=== PATIENT | female | born 1960 | race Caucasian/White ===

== ENCOUNTER 2020-03-11 08:32 | Outpatient (CLI) | payer BC, SELFPAY ==
--- NOTE | ~2020-03-11 | MM_ITS ---
EXAMINATION: MM screening law[facility] BI w jorge HISTORY: Screening mammogram TECHNIQUE: Craniocaudal and mediolateral oblique 3-D tomosynthesis images were obtained and synthetic 2-D images were generated. CAD analysis was submitted and interpreted. COMPARISON: 03/10/2019, 12/09/2017, 07/08/2016 bilateral digital screening mammogram examinations BREAST PARENCHYMAL COMPOSITION: There are scattered areas of fibroglandular density. FINDINGS: There is no evidence of suspicious mass, calcification, or architectural distortion to sugg est malignancy in either breast. There has been no suspicious interval change. IMPRESSION: 1. No mammographic evidence of malignancy. 2. Recommend routine screening mammography in one year. BI-RADS Category 1: Negative Reviewed, dictated and finalized at location A. [employer]
== END 2020-03-11 08:33 | disposition home or self-care (01) ==
LOC: ANHIMG 08:37
PROVIDERS: PCP Nurse Practitioner Adult Health; Visit Provider Family Medicine
DX: Z12.31 Encounter for screening mammogram for malignant neoplasm of breast (principal)
CPT/HCPCS: 77063; 77067

== ENCOUNTER 2022-07-01 07:32 | Outpatient (CLI) | payer BC, SELFPAY ==
--- NOTE | ~2022-07-01 | MM_ITS ---
EXAMINATION: MM screening lawanda BI w jorge HISTORY: Screening mammogram TECHNIQUE: Craniocaudal and mediolateral oblique 3-D tomosynthesis images were obtained and synthetic 2-D images were generated. CAD analysis was submitted and interpreted. COMPARISON: 03/11/2020, 03/10/2019, 12/09/2017 bilateral screening mammogram examinations BREAST PARENCHYMAL COMPOSITION: There are scattered areas of fibroglandular density. FINDINGS: There is no evidence of suspicious mass, calcification, or architectural distortion to sugg est malignancy in either breast. There has been no suspicious interval change. IMPRESSION: 1. No mammographic evidence of malignancy. 2. Recommend routine screening mammography in one year. BI-RADS Category 1: Negative Reviewed, dictated and finalized at location A.
== END 2022-07-01 07:33 | disposition home or self-care (01) ==
LOC: ANHIMG 07:34
PROVIDERS: PCP Nurse Practitioner Family; Visit Provider Nurse Practitioner Family
DX: Z12.31 Encounter for screening mammogram for malignant neoplasm of breast (principal)
CPT/HCPCS: 77063; 77067

== ENCOUNTER 2024-04-30 12:51 | Outpatient (CLI) | payer BC, SELFPAY ==
--- OUTSIDE RECORDS SUMMARY | 2024-04-30 12:57 | XMS_ITS | Data Portability ---
Author Organization [facility], Main Office Address [address] [place] [address] Care Team Providers Care Skin Fitter Name Role Phone RIKKI JEFFERS Primary Care Provider RIKKI JEFFERS Referring Provider [phone] Assessment Encounter Date Assessment Date Assessment LastModified by Organization Details LastModified Time 04/01/2023 04/01/2023 Colon screen- 04/08/22 negative. Mammogram- 07/01/22 WWE- 05/09/22 atrophy, getting every 3 years. DEXA 06/2021 osteopenia. Blood work from ENDO January CMP, thyroid, gfr, cbc, a1c, lipid. Seeing derm, endo, vision, dental routinely. Not available 04/01/2023 13:18:09 04/15/2023 04/15/2023 63 yo F with - DM I - HLD - OSTEOPENIA - CHRONIC LOW BACK PAIN - VIT D DEFICIENCY D/w pt about her findings, recent labs and further plan of care. Pt is getting labs with her Endo regularly and so she declined for any labs here. Meds as directed by specialist. Cont f/u with Endo at [facility] as per schedule. Cont f/u with Pain clinic as per schedule. Cont f/u with Ophtho as per schedule. HM: WWE - 05/16, normal as per pt. Cont f/u with Gyne as per schedule. Mammo - 07/01/22, normal. Colonoscopy - 2009. Cologuard 04/15 - neg as per pt. DEXA - 06/28/21, osteopenia ++. Pt has an order for pt. Tdap - 04/15. Flu - 12/14. Shingrix - At pharmacy/HD. F/u PRN/Annually. Annual labs in 04/17. [email or web address] Not available 04/15/2023 15:52:45 04/05/2024 04/05/2024 64 yo F with - WELL ADULT VISIT - SEASONAL ALLERGIES - DM I - HLD - OSTEOPENIA - CHRONIC LOW BACK PAIN - VIT D DEFICIENCY D/w pt about her findings, recent labs & imagines and further plan of care. Pt is getting labs with her Endo regularly and so she declined for any labs here. Meds as directed by specialist. Cont f/u with Endo at [facility] as per schedule. Cont f/u with Pain clinic as per schedule. Cont f/u with Ophtho as per schedule. HM: WWE - 05/16, normal as per pt. Cont f/u with Gyne as per schedule. Mammo - 07/01/22, normal. Ordered. Colonoscopy - 2009. Cologuard 04/15 - neg as per pt. DEXA - 06/28/21, osteopenia ++. Ordered. Tdap - 04/15. Flu - 12/15. Pneumonia - 2019. Shingrix - Pt got 2 doses. F/u PRN/Annually. Annual labs in 04/18. Not available 04/05/2024 14:55:08 Plan of Treatment Reminders Order Date Submit Date Provider Last Modified By Organization Details Last Modified Time Details Appointments None recorded. Lab None recorded. Referral None recorded. Procedures None recorded. Surgeries None recorded. Imaging MAMMO, screening, digital, bilateral [address] [place] [address] [facility], [address], [place], [address], 16:47:44 DEXA - osteopenia in 2021. *Please call pt to schedule* [address] [place] [address] (Imaging), [address], [place], [address], 4 08:59:18 MAMMO, screening, bilateral - Please call pt to schedule [facility] [address], [place], [address], 16:05:23 DEXA - Please call pt to schedule 2024 025 MELL [facility], [address], [place], [address], 16:05:23 Medication Orders fluticason e propionate 50 mcg/actuat ion nasal spray,susp ension 2024 025 ARELI [id number], [address] [facility], [place], [place], [id number], 14:37:22 Patient TargetsNo targets recorded. Patient Instructions Encounter Date Encounter Id Patient Instructions Last Modified By Organization Details Last Modified Time 04/01/2023 [id number] see above [email or web address] Not available 04/01 13:18:16 fu in 1-3 mo wit h new provider to establish. 04/01/23 pt aware of [facility]ant departure. Will schedule with [facility]. Not available 04/01/2023 13:18:47 Reason for Referral None Reported. Results Created Date Observation Date Name Description Value Unit Range Abnormal Flag Note LastModifiedBy Organization Detail LastModifiedTime 05/09/1905/17/2022 PAP THINP REP LB, RFX HPV diagnosis: commen t . NEGAT KRISHAN FOR INTRA EPITH ELIAL ENE N OR PATY DIAZ . CELLU LAR KAUFMAN ES ASSOC IATED WITH ATROP HY ARE PRESE NT. Not Available [facility] (Lab) [address] [place], [address], 05/17/2022 11:12:46 05/09/1905/17/2022 PAP THINP REP LB, RFX HPV specimen adequacy: commen t . Satis facto ry for evalu ation . Endoc ervic al and/o r squam ous m etapl astic cells (endo cervi alok compo nent) are prese nt. Not Available [facility] (Lab) [address] [place], [address], 05/17/2022 11:12:46 05/09/19 23 05/17/2022 PAP THINP REP LB, RFX HPV performed by: adwoa Jordan ws, Cytot echshonda morales t (ASCP ) Not Available [facility] (Lab) [address] [place], [address], 05/17/2022 11:12:46 05/09/19 23 05/17/2022 PAP THINP REP LB, RFX HPV . . Not Available [facility] (Lab) [address] [place], [address], 05/17/2022 11:12:46 05/09/19 23 05/17/2022 PAP THINP REP LB, RFX HPV note: adwoa epps The Pap smear is a scree eleonora test desig mina to aid in the detec tion of elizabeth ligna nt and malig nant condi tions of the uteri ne cervi x. It is not a diagn ostic proce dure and shoul d not be used as the sole means of detec ting cervi alok cance r. Both false -posi tive and false -nega tive repor ts do occur . . Not Available [facility] (Lab) [address] [place], [address], 05/17/2022 11:12:46 05/09/19 23 05/17/2022 PAP THINP REP LB, RFX HPV test methodology: adwoa epps This liqui d based ThinP rep(R ) pap test was scree mina with the use of an image guide estela taylor. Not Available [facility] (Lab) [address] [place], [address], 05/17/2022 11:12:46 05/09/19 23 05/17/2022 PAP THINP REP LB, RFX HPV . adwoa epps The HPV DNA refle x crite neelima were not met with this speci men resul t there fore, no HPV testi ng was perfo rmed. . Perfo rmed at: [facility] [place] [address] , [place] [address] Lab Direc tor: Yusuf flanagan MD, Phone : [phone] Not Available [facility] (Lab) [address] [place], [address], 05/17/2022 11:12:46 04/27/19 25 04/28/2024 COMPR EHENS KRISHAN METAB OLIC PANEL glucose 156 mg/dL 65-99 high Fasti ng refer ence inter dougie For someo ne witho ut known diabe pedro, a gluco se value >125 mg/dL indic ates that they may have diabe pedro and this shoul d be confi rmed with a follo w-up test. Not Available [address], [address], 04/28/2024 08:53:22 04/27/19 25 04/28/2024 COMPR EHENS KRISHAN METAB OLIC PANEL urea nitrogen (BUN) 25 mg/dL 7-25 normal Not Available [address], [address], 04/28/2024 08:53:22 04/27/19 25 04/28/2024 COMPR EHENS KRISHAN METAB OLIC PANEL creatinine 0.78 mg/dL 0.50-1 .05 normal Not Available [facility] [address], [address], 04/28/2024 08:53:22 04/27/19 25 04/28/2024 COMPR EHENS KRISHAN METAB OLIC PANEL eGFR 85 mL/mi n/1.7 3m2 > or = 60 normal Not Available [facility] [address], [address], 04/28/2024 08:53:22 04/27/19 25 04/28/2024 COMPR EHENS KRISHAN METAB OLIC PANEL BUN/creatini ne ratio SEE NOTE: (calc ) 6-22 Not Repor sarahy: BUN and Creat inine are withi n refer ence range . Not Available [address], [address], 04/28/2024 08:53:22 04/27/19 25 04/28/2024 COMPR EHENS KRISHAN METAB OLIC PANEL sodium 139 mmol/ L 135-14 6 normal Not Available [address], [address], 04/28/2024 08:53:22 04/27/19 25 04/28/2024 COMPR EHENS KRISHAN METAB OLIC PANEL potassium 4.5 mmol/ L 3.5-5. 3 normal Not Available [address], [address], 04/28/2024 08:53:22 04/27/19 25 04/28/2024 COMPR EHENS KRISHAN METAB OLIC PANEL chloride 101 mmol/ L 98-110 normal Not Available [address], [address], 04/28/2024 08:53:22 04/27/19 25 04/28/2024 COMPR EHENS KRISHAN METAB OLIC PANEL carbon dioxide 25 mmol/ L 20-32 normal Not Available [address], [address], 04/28/2024 08:53:22 04/27/19 25 04/28/2024 COMPR EHENS KRISHAN METAB OLIC PANEL calcium 9.9 mg/dL 8.6-10 .4 normal Not Available [address], [address], 04/28/2024 08:53:22 04/27/19 25 04/28/2024 COMPR EHENS KRISHAN METAB OLIC PANEL protein, total 6.3 g/dL 6.1-8. 1 normal Not Available [address], [address], 04/28/2024 08:53:22 04/27/19 25 04/28/2024 COMPR EHENS KRISHAN METAB OLIC PANEL albumin 4.5 g/dL 3.6-5. 1 normal Not Available [address], [address], 04/28/2024 08:53:22 04/27/19 25 04/28/2024 COMPR EHENS KRISHAN METAB OLIC PANEL globulin 1.8 g/dL_ (calc ) 1.9-3. 7 low Not Available [address], [address], 04/28/2024 08:53:22 04/27/19 25 04/28/2024 COMPR EHENS KRISHAN METAB OLIC PANEL albumin/glob ulin ratio 2.5 (calc ) 1.0-2. 5 normal Not Available [address], [address], 04/28/2024 08:53:22 04/27/19 25 04/28/2024 COMPR EHENS KRISHAN METAB OLIC PANEL bilirubin, total 0.7 mg/dL 0.2-1. 2 normal Not Available [address], [address], 04/28/2024 08:53:22 04/27/19 25 04/28/2024 COMPR EHENS KRISHAN METAB OLIC PANEL alkaline phosphatase 77 U/L 37-153 [address] Not [address] [facility] [address], [address], 04/28/2024 08:53:22 04/27/19 25 04/28/2024 COMPR EHENS KRISHAN METAB OLIC PANEL AST 35 U/L 10-35 normal Not Available [address], [address], 04/28/2024 08:53:22 04/27/19 25 04/28/2024 COMPR EHENS KRISHAN METAB OLIC PANEL ALT 60 U/L 6-29 high Not Available [address], [address], 04/28/2024 08:53:22 04/27/19 25 04/28/2024 CBC (INCL UDES DIFF/ PLT) white blood cell count 4.9 thous and/u L 3.8-10 .8 normal Not Available [address], [address], 04/28/2024 08:53:24 04/27/19 25 04/28/2024 CBC (INCL UDES DIFF/ PLT) red blood cell count 4.51 geno on/uL 3.80-5 .10 normal Not Available [address], [address], 04/28/2024 08:53:24 04/27/19 25 04/28/2024 CBC (INCL UDES DIFF/ PLT) hemoglobin 13.7 g/dL 11.7-1 5.5 normal Not Available [address], [address], 04/28/2024 08:53:24 04/27/19 25 04/28/2024 CBC (INCL UDES DIFF/ PLT) hematocrit 40.8 % 35.0-4 5.0 normal Not Available [address], [address], 04/28/2024 08:53:24 04/27/19 25 04/28/2024 CBC (INCL UDES DIFF/ PLT) MCV 90.5 fL 80.0-1 00.0 normal Not Available [address], [address], 04/28/2024 08:53:24 04/27/19 25 04/28/2024 CBC (INCL UDES DIFF/ PLT) MCH 30.4 pg 27.0-3 3.0 normal Not Available [facility] [address], [address], 04/28/2024 08:53:24 04/27/19 25 04/28/2024 CBC (INCL UDES DIFF/ PLT) MCHC 33.6 g/dL 32.0-3 6.0 normal For adult s, a sligh t decre ase in the calcu lated MCHC value (in the range of 30 to 32 g/dL) is most likel y not clini clarice signi fican t; arenev er, it shoul d be inter prete d with cauti on in corre latio n with other red cell mayra eters and the patie nt's clini alok condi tion. Not Available [address], [address], 04/28/2024 08:53:24 04/27/19 25 04/28/2024 CBC (INCL UDES DIFF/ PLT) RDW 12.0 % 11.0-1 5.0 normal Not Available [address], [address], 04/28/2024 08:53:24 04/27/19 25 04/28/2024 CBC (INCL UDES DIFF/ PLT) platelet count 215 thous and/u L 140-40 0 normal Not Available [address], [address], 04/28/2024 08:53:24 04/27/19 25 04/28/2024 CBC (INCL UDES DIFF/ PLT) MPV 12.9 fL 7.5-12 .5 high Not Available [address], [address], 04/28/2024 08:53:24 04/27/19 25 04/28/2024 CBC (INCL UDES DIFF/ PLT) absolute neutrophils 2710 cells /uL 1500-7 800 normal Not Available [facility] [address], [address], 04/28/2024 08:53:24 04/27/19 25 04/28/2024 CBC (INCL UDES DIFF/ PLT) absolute lymphocytes 1725 cells /uL 850-39 00 normal Not Available [facility] [address], [address], 04/28/2024 08:53:24 04/27/19 25 04/28/2024 CBC (INCL UDES DIFF/ PLT) absolute monocytes 319 cells /uL 200-95 0 normal Not Available [facility] [address], [address], 04/28/2024 08:53:24 04/27/19 25 04/28/2024 CBC (INCL UDES DIFF/ PLT) absolute eosinophils 108 cells /uL 15-500 normal Not Available [facility] [address], [address], 04/28/2024 08:53:24 04/27/19 25 04/28/2024 CBC (INCL UDES DIFF/ PLT) absolute basophils 39 cells /uL 0-200 normal Not Available [facility] [address], [address], 04/28/2024 08:53:24 04/27/19 25 04/28/2024 CBC (INCL UDES DIFF/ PLT) neutrophils 55.3 % normal Not Available [facility] [address], [address], 04/28/2024 08:53:24 04/27/19 25 04/28/2024 CBC (INCL UDES DIFF/ PLT) lymphocytes 35.2 % normal Not Available [facility] [address], [address], 04/28/2024 08:53:24 04/27/19 25 04/28/2024 CBC (INCL UDES DIFF/ PLT) monocytes 6.5 % normal Not Available [facility] [address], [place], [address], 04/28/2024 08:53:24 04/27/19 25 04/28/2024 CBC (INCL UDES DIFF/ PLT) eosinophils 2.2 % normal Not Available [address], [address], 04/28/2024 08:53:24 04/27/19 25 04/28/2024 CBC (INCL UDES DIFF/ PLT) basophils 0.8 % normal Not Available [address], [address], 04/28/2024 08:53:24 04/27/19 25 04/28/2024 URINA LYSIS , COMPL ETE W/REF LANE TO CULTU RE color YELLOW yellow normal Not Available [address], [address], 04/28/2024 08:53:25 04/27/19 25 04/28/2024 URINA LYSIS , COMPL ETE W/REF LANE TO CULTU RE appearance CLEAR clear normal Not Available [address], [address], 04/28/2024 08:53:25 04/27/19 25 04/28/2024 URINA LYSIS , COMPL ETE W/REF LANE TO CULTU RE specific gravity 1.007 1.001- 1.035 normal Not Available [address], [address], 04/28/2024 08:53:25 04/27/19 25 04/28/2024 URINA LYSIS , COMPL ETE W/REF LANE TO CULTU RE pH 6.5 5.0-8. 0 normal Not Available [address], [address], 04/28/2024 08:53:25 04/27/19 25 04/28/2024 URINA LYSIS , COMPL ETE W/REF LANE TO CULTU RE glucose NEGATI VE negati ve normal Not Available [address], [address], 04/28/2024 08:53:25 04/27/19 25 04/28/2024 URINA LYSIS , COMPL ETE W/REF LANE TO CULTU RE bilirubin NEGATI VE negati ve normal Not Available [facility] [address], [address], 04/28/2024 08:53:25 04/27/19 25 04/28/2024 URINA LYSIS , COMPL ETE W/REF LANE TO CULTU RE ketones NEGATI VE negati ve normal Not Available [facility] [address], [address], 04/28/2024 08:53:25 04/27/19 25 04/28/2024 URINA LYSIS , COMPL ETE W/REF LANE TO CULTU RE occult blood NEGATI VE negati ve normal Not Available [facility] [address], [address], 04/28/2024 08:53:25 04/27/19 25 04/28/2024 URINA LYSIS , COMPL ETE W/REF LANE TO CULTU RE protein NEGATI VE negati ve normal Not Available [facility] [address], [address], 04/28/2024 08:53:25 04/27/19 25 04/28/2024 URINA LYSIS , COMPL ETE W/REF LANE TO CULTU RE nitrite NEGATI VE negati ve normal Not Available [facility] [address], [address], 04/28/2024 08:53:25 04/27/19 25 04/28/2024 URINA LYSIS , COMPL ETE W/REF LANE TO CULTU RE leukocyte esterase NEGATI VE negati ve normal Not Available [facility] [address], [address], 04/28/2024 08:53:25 04/27/19 25 04/28/2024 URINA LYSIS , COMPL ETE W/REF LANE TO CULTU RE WBC NONE SEEN /hpf < or = 5 normal Not Available [address], [place], [address], 04/28/2024 08:53:25 04/27/19 25 04/28/2024 URINA LYSIS , COMPL ETE W/REF LANE TO CULTU RE RBC NONE SEEN /hpf < or = 2 normal Not Available [address], [place], [address], 04/28/2024 08:53:25 04/27/19 25 04/28/2024 URINA LYSIS , COMPL ETE W/REF LANE TO CULTU RE squamous epithelial cells NONE SEEN /hpf < or = 5 normal Not Available [address], [place], [address], 04/28/2024 08:53:25 04/27/19 25 04/28/2024 URINA LYSIS , COMPL ETE W/REF LANE TO CULTU RE bacteria NONE SEEN /hpf none seen normal Not Available [address], [place], [address], 04/28/2024 08:53:25 04/27/19 25 04/28/2024 URINA LYSIS , COMPL ETE W/REF LANE TO CULTU RE hyaline cast NONE SEEN /lpf none seen normal Not Available [address], [address], 04/28/2024 08:53:25 04/27/19 25 04/28/2024 URINA LYSIS , COMPL ETE W/REF LANE TO CULTU RE note This urine was keena zed for the prese nce of WBC, RBC, bacte neelima, casts , and other forme d eleme nts. Only those eleme nts seen were repor sarahy. Not Available [address] [place], [address], 04/28/2024 08:53:25 04/27/1904/28/2024 REFLE XIVE URINE CULTU RE reflexive urine culture NO CULTU RE INDIC ATED Not Available [facility] [place] [address] , [place], [address], 04/28/2024 08:53:27 04/27/19 25 04/28/2024 VITAM IN D,25- OH,TO ALBAN,I A vitamin D,25-oh,tota l,ia 92 NG/mL 30-100 normal Vitam in D Statu s 25-OH Vitam in D: Defic iency : <20 ng/mL Insuf ficie ncy: 20 - 29 ng/mL Optim al: > or = 30 ng/mL For 25-OH Vitam in D testi ng on patie nts on D2-rubio pplem entat ion and patie nts for whom quant itati on of D2 and D3 fract ions is requi red, the [facility] eD(TM ) 25-OH VIT D, (D2,D 3), LC/MS /MS is recom juliano d: order code 53274 (abraham ents >2yrs ). See Note 1 Note 1 For addit ional infor rena ventura e refer to http: //jonathan Gonzales stDia gnost ics.c om/fa q/FAQ 199 (This link is being provi ded for infor kristen cannon/ caleb chong purpo ses only. ) Not Available [facility] [place] [address], [place], [address], 04/28/2024 08:53:27 07/02/1907/01/2022 MAMMO , swati crews, bilat eral No observ ation record ed. [email or web address] [place] [address], [place], [address], 07/03/2022 08:57:32 04/15/19 25 04/14/2024 DEXA No observ ation record ed. BARCODE Not Available 2024 15:22:00 Result Notes None recorded. Problems Name Problem SNOMED Code Status Onset Date Resolution Date Notes Provider Name and Address Organization Details Recorded Time Disorder of shoulder 640492578 Completed Not Available [facility] 3 08:48:33 Menopausal syndrome 757672403 Active Not Available [facility] 3 08:48:33 Injury of elbow 843823490 Completed Not Available [facility] 3 08:48:33 Anti-nucle ar factor detected 025491054 Active Not Available [facility] 3 08:48:33 Lateral epicondyli tis 380453113 Completed Not Available [facility] 3 08:48:33 Pain 43152189 Completed Not Available [facility] 3 08:48:33 Shoulder joint pain 115248749 Active Not Available [facility] 3 08:48:33 Elevated level of transamina se and lactic acid dehydrogen ase 046143365 Active Not Available [facility] 3 08:48:33 Difficulty gripping 145863703 Completed Not Available [facility] 3 08:48:34 Chest pain 71516750 Completed Not Available [facility] 3 08:48:34 Numbness of finger 337294423 Completed Not Available [facility] 3 08:48:34 Osteopenia 325741264 Active 2019 Not Available [facility] 3 08:48:34 Vaginal dryness 60851980 Active Not Available [facility] 3 08:48:34 Tachycardi a 8247346 Completed Not Available [facility] 3 08:48:34 Vitamin D deficiency 01097046 Active Not Available [facility] 3 08:48:34 Tendinitis 37628303 Completed Not Available [facility] 3 08:48:34 Ulnar neuropathy 269814423 Completed Not Available [facility] 3 08:48:34 Sinusitis 03853701 Completed Not Available [facility] 3 08:48:34 Disorder due to type 2 diabetes mellitus 642742919 Completed Not Available [facility] 3 08:48:35 Seasonal allergy 675016572 Active Not Available [facility] 3 08:48:35 Shoulder pain 99705222 Completed 201602/03/2019 Not Available [facility] 3 08:48:35 Type 1 diabetes mellitus 12825153 Active 2018 Not Available [facility] 3 08:48:35 Retinopath y due to diabetes mellitus 9831370 Completed 201802/03/2019 Not Available [facility] 3 08:48:35 Hyperlipid emia 67762497 Active Not Available [facility] 3 08:48:35 Intolerant of heat 78949889 Completed Not Available [facility] 3 08:48:35 Rhinitis 52257809 Completed Not Available [facility] 3 08:48:36 Hemorrhoid s 34520630 Active Not Available [facility] 3 08:48:36 Diabetes mellitus 80061602 Completed Not Available [facility] 3 08:48:36 Diabetes mellitus 99895860 Completed 201802/03/2019 Not Available [facility] 3 08:48:36 Postmenopa usal state 55407000 Active 2022 Not Available [facility] 3 08:48:36 Epigastric pain 28669580 Completed Not Available [facility] 3 08:48:36 Hyperglyce nabila 73161115 Completed Not Available [facility] 3 08:48:36 Fatigue 41220844 Completed Not Available [facility] 3 08:48:37 Seasonal allergic rhinitis 334316419 Active 2024 Nilson Green MD [address], [address], [place], [address] , [facility] 5 14:36:37 Problem Notes None recorded. Procedures Surgical History Date Name Laterality Status Provider Name and Address Organization Details Recorded Time 07/02/19 Date of Last Mammogram completed Jane Cast NP [address], [address], [place], [address], [place] [facility] 07/02/2022 15:48:09 07/02/19 23 Most Recent Mammogram completed Jane Beavers RN [facility] 04/01/2023 12:15:55 04/08/19 23 Date of Last Colonoscopy completed Not Available [facility] 05/22/2022 08:44:04 06/29/19 22 Most Recent Bone Density completed Jane Beavers RN [facility] 04/01/2023 12:16:23 03/24/19 19 release of trigger finger completed Not Available [facility] 05/22/2022 08:44:05 Tonsillectomy completed Not Available [facility] 05/22/2022 08:44:05 Imaging Results Imaging Date Name Status LastModified by Organiz ation Details LastModified Time 07/01/2022 MAMMO, [facility] [place] [address] [place] [address], [address], 07/03/2022 08:57:32 04/14/2024 DEXA completed BARCODE Information no t available 04/15/2024 15:22:00 Procedure Notes None recorded. Medical Equipment None Reported. Allergies Allergen ID Allergen Name Allergen Category Reaction Reaction Severity Criticality Documentation Date Start Date Code Code System Note Provider Name and Address Organization Details Recorded Time Product containin g 3-hydroxy -3-methyl glutaryl- coenzyme A reductase inhibitor (product) medicatio n other Not available Not available 05/22/2022 [address] 009 SNOMED [facility] sarahy liver enzym es Not Available [facility] 08:53:49 Medications Name Sig Start Date Stop Date Status Note LastModified by Organization Details LastModified Time cyclobenz aprine 10 mg tablet TK 1 T PO D HS FOR 30 DAYS. active Not Available Not Available No t Available atorvasta tin 40 mg tablet 02/19 completed Not Available Not Available Not Available atorvasta tin 80 mg tablet Take 1 po daily active Not Available Not Available No t Available prednison e 10 mg tablet Take by oral route. active Not Available Not Available No t Available cefuroxim e axetil 250 mg tablet active Not Available Not Available Not Available Anusol-HC 2.5 % rectal cream with applicato r Insert by rectal route one applicat or after bowel movement s and at bedtime. 07/02 completed prn Not Available Not Available Not Available atorvasta tin 10 mg tablet TAKE 1 TABLET BY MOUTH DAILY 02/19 completed Not Available Not Available Not Available Stool Softener 100 mg capsule Take 1 capsule every day by oral route. 07/29 completed Not Available Not Available Not Available glyburide 5 mg tablet TK 1 T PO QD 02/03 completed Not Available Not Available Not Available Glucagon Emergency Kit 1 mg solution for injection 07/13 completed Not Available Not Available Not Available valacyclo vir 1 gram tablet TAKE 1 TABLET BY MOUTH THREE TIMES DAILY FOR 7 DAYS 04/05 completed Not Available Not Available Not Available hydrocodo ne 5 mg-acetam inophen 325 mg tablet 02/03 completed Not Available Not Available Not Available prednison e 20 mg tablet TAKE 2 TABLETS BY MOUTH DAILY FOR 5 DAYS 04/05 completed Not Available Not Available Not Available Zyrtec 10 mg tablet 1 tablet every day by oral route. active Not Available Not Available No t Available sulfameth oxazole 800 mg-trimet hoprim 160 mg tablet TAKE 1 TABLET BY MOUTH EVERY 12 HOURS 03/28 completed Not Available Not Available Not Available omeprazol e 40 mg capsule,d elayed release Take 1 capsule daily active Not Available Not Available No t Available aspirin 81 mg tablet,de layed release Take 1 tablet every day by oral route. 04/05 completed Not Available Not Available Not Available triamcino lone acetonide 0.1 % topical cream APPLY A THIN LAYER TO THE AFFECTED AREA(S) BY TOPICAL ROUTE 2 TIMES PER DAY 03/28 completed Not Available Not Available Not Available Kenalog 40 mg/mL suspensio n for injection Take 1 mL every day by injectio n route for 1 day. 02/19 completed Not Available Not Available Not Available Mobic 15 mg tablet Take 1 tablet every day by oral route in the morning for 30 days. 06/27 completed Not Available Not Available Not Available Vitamin C 1,000 mg tablet Take 1 tablet every day by oral route. 04/06 completed Not Available Not Available Not Available cyanocoba mary (vit B-12) 500 mcg tablet Take 1 tablet every day by oral route. 04/05 completed Not Available Not Available Not Available Proctozon e-HC 2.5 % topical cream perineal applicato r APPLY RECTALLY AFTER BOWEL MOVEMENT S AND HS 02/14 completed Not Available Not Available Not Available cephalexi n 500 mg capsule TAKE 1 CAPSULE BY MOUTH THREE TIMES DAILY FOR 10 DAYS 04/05 completed Not Available Not Available Not Available diclofena c sodium 75 mg tablet,de layed release TK 1 T PO BID WITH FOOD 11/05 completed ELEVATED LIVER ENZYMES Not Available Not Available Not Available etodolac 400 mg tablet TK 1 T PO BID active Not Available Not Available No t Available monteluka st 10 mg tablet Take 1 tablet every day by oral route for 30 days. active Not Available Not Available No t Available lidocaine HCl 20 mg/mL (2 %) injection solution 04/05 completed Not Available Not Available Not Available Novolog U-100 Insulin aspart 100 unit/mL subcutane ous solution FOR INSULIN PUMP active Not Available Not Available No t Available levofloxa betito 500 mg tablet Take 1 tablet every day by oral route as directed . 2013 active Not Available Not Available Not Avai lable Anusol-HC 25 mg rectal supposito ry Insert 1 supposit ory twice a day by rectal route for 14 days. 04/06 completed Not Available Not Available Not Available methylpre dnisolone 4 mg tablets in a dose pack FOLLOW PACKAGE DIRECTIO NS 02/19 completed Not Available Not Available Not Available fluticaso ne propionat e 50 mcg/actua tion nasal spray,chris pension Inhale 2 sprays every day by intranas al route in the evening. active Not Available Not Available No t Available metformin ER 500 mg tablet,ex tended release 24 hr TK 1 T PO BID 07/29 completed Not Available Not Available Not Available Microlet Lancet USE TO TEST SIX TIMES D 07/13 completed Not Available Not Available Not Available amoxicill in 500 mg-potass ium clavulana te 125 mg tablet TK 1 T PO BID active Not Available Not Available No t Available ezetimibe 10 mg tablet 1 tab po daily active Not Available Not Available No t Available Vitamin D3 25 mcg (1,000 unit) capsule Take 1 capsule every day by oral route as directed . 04/14 completed Not Available Not Available Not Available rosuvasta tin 10 mg tablet Take 1 tablet every day by oral route for 90 days. 02/03 completed Not Available Not Available Not Available metformin ER 1,000 mg tablet,ex tended release 24 hr 1 tab po bid 07/29 completed Not Available Not Available Not Available vitamin P42-emrqd acid 1 po qd 2013 active Not Available Not Available Not Avai lable metformin ER 500 mg 24 hr tablet,ex tended release (gastric retention ) Take 1 tablet every day by oral route. 07/02 completed Labs due 06/2016 Not Available Not Available Not Available Januvia 100 mg tablet Take 1 tablet every day by oral route for 30 days. active Not Available Not Available No t Available Lantus Solostar U-100 Insulin 100 unit/mL (3 mL) subcutane ous pen ADMINIST ER 10 UNITS UNDER THE SKIN DAILY 04/01 completed Not Available Not Available Not Available Astepro 205.5 mcg (0.15 %) nasal spray [place] 2 sprays every day by intranas al route as directed . 2013 active Not Available Not Available Not Avai lable Vitamin D3 125 mcg (5,000 unit) tablet 1 tablet every day by oral route. active Not Available Not Available No t Available Novolog PenFill U-100 Insulin Uses with pump 03/28 completed Not Available Not Available Not Available Pilar Allergy 180 mg tablet Take 1 tablet every day by oral route. 08/30 completed Not Available Not Available Not Available Pilar Allergy 1 po qd 2013 active Not Available Not Available Not Avai lable Accu-Chek FastClix Lancing Device USE TO TEST ONCE TO BID 01/01 completed Not Available Not Available Not Available Accu-Chek Antonina U UTD 01/01 completed Not Available Not Available Not Available Contour Next Test Strips USE TO TEST UP TO SIX TIMES D active Not Available Not Available No t Available Victoza 2-Jack 0.6 mg/0.1 mL (18 mg/3 mL) subcutane ous pen injector Inject 0.6mg subcutan eous daily, increase dose by 0.6mg weekly until reaching 1.8mg daily. 02/03 completed Not Available Not Available Not Available Invokana 100 mg tablet TAKE 1 TABLET BY MOUTH EVERY DAY active Not Available Not Available No t Available Trulicity 1.5 mg/0.5 mL subcutane ous pen injector 02/03 completed Not Available Not Available Not Available Trulicity 0.75 mg/0.5 mL subcutane ous pen injector INJECT 0.5ML EVERY WEEK BY SUBCUTAN EOUS ROUTE. 02/03 completed Not Available Not Available Not Available Tresiba FlexTouch U-100 insulin 100 unit/mL (3 mL) subcutane ous pen INJ 10 UNITS UNDER SKIN NIGHTLY 02/14 completed Not Available Not Available Not Available Flucelvax Quad 6929-1149 (PF) 60 mcg (15 mcg x 4)/0.5 mL IM syringe ADM 0.5ML IM UTD 07/29 completed Not Available Not Available Not Available BD Ultra-Fin e Micro Pen Needle 32 gauge x 1/4 U TO INJ INSULIN UTD UP TO 7 XD 07/13 completed Not Available Not Available Not Available Fiasp FlexTouch U-100 Insulin 100 unit/mL (3 mL) subcutane ous pen INJ 5 UNI SC TID 02/14 completed Not Available Not Available Not Available Dexcom G6 Transmitt er device USE DIRECTED 04/01 completed Not Available Not Available Not Available Baqsimi 3 mg/actuat ion nasal spray ADMINIST ER 1 SPRAY INTO ONE NOSTRIL NEEDED active Not Available Not Available No t Available Semglee (insulin glargine- yfgn) Pen 100 unit/mL (3 mL) subcutane ous ADMINIST ER 10 UNITS UNDER THE SKIN DAILY active Not Available Not Available No t Available Dexcom G7 Sensor device CHANGE SENSOR EVERY 10 DAYS DIRECTED active Not Available Not Available No t Available Vitals Date Recorded Body mass index (BMI) Body mass index (BMI) Body height Body height Oxygen saturation Oxygen saturation in Arterial blood by Pulse oximetry Oxygen saturation Oxygen saturation in Arterial blood by Pulse oximetry Heart rate Heart rate Respiratory rate Body temperature Body temperature Body weight Body weight Systolic blood pressure Diastolic blood pressure Systolic blood pressure Diastolic blood pressure Provider Name and Address Organization Details Last Updated DateTime 3 22.9 kg/m2 22.8 kg/m2 160.02 cm 160.02 cm 98 % 98 % 97 % 97 % 70 /min 66 /min 16 /min 97.4 [degF] 98.7 [degF] 80095.4 2 g 30449.0 6 g 122 mm[Hg] 78 mm[Hg] 108 mm[Hg] 78 mm[Hg] Not Available [facility] 3 08:44:41 Date Recorded Body height Body mass index (BMI) Body weight Body temperature Heart rate Respiratory rate Oxygen saturation Oxygen saturation in Arterial blood by Pulse oximetry Pain severity - 0-10 verbal numeric rating [Score] - Reported Systolic blood pressure Diastolic blood pressure Provider Name and Address Organization Details Last Updated DateTime 4 160.02 cm 23.6 kg/m2 99436.1 4 g 96.6 [degF] 64 /min 20 /min 97 % 97 % 0 114 mm[Hg] 72 mm[Hg] Jane Beavers RN [facility] [employer] 4 12:14:48 Date Recorded Body height Body temperature Heart rate Respiratory rate Oxygen saturation Oxygen saturation in Arterial blood by Pulse oximetry Systolic blood pressure Diastolic blood pressure Provider Name and Address Organization Details Last Updated DateTime 4 160.02 cm 98.3 [degF] 66 /min 16 /min 99 % 99 % 118 mm[Hg] 76 mm[Hg] Niels [facility] [employer] [facility] 4 15:25:31 Date Recorded Body mass index (BMI) Body weight Provider Name and Address Organization Details Last Updated DateTime 04/15/2023 23.2 kg/m2 02788.3 g Nilson Green MD [address] [place] [address], [id number], [place] [employer] [facility] [employer] 04/15/2023 15:28:08 Date Recorded Body height Body mass index (BMI) Body weight Body temperature Oxygen saturation Oxygen saturation in Arterial blood by Pulse oximetry Heart rate Systolic blood pressure Diastolic blood pressure Provider Name and Address Organization Details Last Updated DateTime 5 160.02 cm 22.3 kg/m2 75901.9 9 g 97.9 [degF] 99 % 99 % 63 /min 120 mm[Hg] 78 mm[Hg] Anna Lundberg RN [facility] [employer] 14:21:00 Social History Question Answer Notes LastModified by Organization Details LastModified Time Tobacco Smoking Status Never Smoker Vero en[facility] [employer] [facility] [employer] 04/15/2023 15:11:28 Do You Have An Advance Directive? Yes [id number] Information not available 05/22/2022 What Is Your Level Of Alcohol Consumption? None [id number] Information not available 05/22/2022 Is Blood Transfusion Acceptable In An Emergency? Yes [email or web address] Information not available 04/15/2023 What Is Your Level Of Caffeine Consumption? Heavy Coffee And Sodas [id number] Information not available 05/22/2022 What Is Your Code Status? Full Code Information not available 04/15/2023 In The 14 Days Before Symptom Onset, Have You Had Close Contact With A Laboratory-confi rmed COVID-19 While That Case Was Ill? No [email or web address] Information not available 04/15/2023 In The 14 Days Before Symptom Onset, Have You Had Close Contact With A Person Who Is Under Investigation For COVID-19 While That Person Was Ill? No [email or web address] Information not available 04/15/2023 What Type Of Diet Are You Following? REGULAR [id number] Information not available 05/22/2022 What Is The Highest Grade Or Level Of School You Have Completed Or The Highest Degree You Have Received? [id number] [email or web address] Information not available 04/15/2023 What Is Your Occupation? Retired [email or web address] Information not available 04/15/2023 Have There Been Any Changes To Your Family Or Social Situation? No Information not available 04/15/2023 Do You Use Insect Repellent Routinely? Yes [email or web address] Information not available 04/15/2023 Where Do You Live? SingleLevelHouse With Basement [email or web address] Information not available 04/15/2023 Do You Have A Medical Power Of Legal Transcriber? Yes [email or web address] Information not available 04/15/2023 What Was The Date Of Your Most Recent Tobacco Screening? 07/11/2021 [email or web address] Information not available 04/15/2023 Do You Have Any Pets? No [email or web address] Information not available 04/15/2023 What Is Your Relationship Status? [id number] Information not available 05/22/2022 Do You Use Your Seat Belt Or Car Seat Routinely? Yes [email or web address] Information not available 04/15/2023 Do You Have Smoke And Carbon Monoxide Detectors In Your Home? Yes [email or web address] Information not available 04/15/2023 Are You Passively Exposed To Smoke? No [email or web address] Information not available 04/15/2023 Are There Any Smokers In Your House? No [email or web address] Information not available 04/15/2023 Do You Participate In [employer]? Yes Information not available 04/15/2023 Do You Feel Stressed (tense, Restless, Nervous, Or Anxious, Or Unable To Sleep At Night)? [id number] [email or web address] Information not available 04/15/2023 Do You Use Any Illicit Or Recreational Drugs? No Information not available 04/15/2023 Do You Use Sunscreen Routinely? Yes [email or web address] Information not available 04/15/2023 Have You Recently Traveled Abroad? No [email or web address] Information not available 04/15/2023 Sex: Unknown Functional Status Question Answer Note LastModified by Organization D etails LastModified Time What is your exercise level? Moderate [email or web address] Information not available 04/01/2023 Mental Status None recorded. Family History Relationship Description Onset Age of this Age Resolved Age Notes LastModified by Organization Details LastModified Time Mother Atrial fibrillation [email or web address] Not available 14:09:08 Mother Cerebrovascu lar accident [email or web address] Not available 14:09:08 Mother Hypertensive disorder [id number] Not available 05/22/2022 08:44:06 Father Malignant neoplasm of urinary bladder [email or web address] Not available 04/05 14:09:08 Sister Psoriatic arthritis [email or web address] Not available 04/05 14:09:08 Medical History Condition Response DIABETES, TYPE Y HIGH CHOLESTEROL / HYPERLIPIDEMIA Y Gynecological History Statement/Question Response Abnormal Pap N If Post Menopausal, Age at Menopause 53 Date of Last Colonoscopy 04/08/2022 Date of Last Mammogram 07/01/2022 Most Recent Bone Density 06/28/2021 Date of Last Pap 05/09/2022 Most Recent Mammogram 07/01/2022 Obstetrics History GPAL:G 0 P 0 0 0 0 Immunizations Vaccine Type Date Status Note Provider Nam e and Address Organization Details Recorded Time Tdap 3 completed Nilson Green MD [address], [place], [address], [facility] [employer] [facility] 04/05/2024 14:24:59 Influenza, split virus, trivalent, preservative 4 completed Nilson Green MD [address], [place], [address], [facility] [employer] [facility] 04/05/2024 14:24:59 Influenza, split virus, trivalent, preservative 7 completed Not Available [facility] 05/22/2022 08:53:41 COVID-19, mRNA, LNP-S, PF, 100 mcg/0.5mL dose or 50 mcg/0.25mL dose 1 completed Not Available [facility] 05/22/2022 08:53:41 Influenza, split virus, quadrivalent, preservative 1 completed Not Available [facility] 05/22/2022 08:53:41 COVID-19, mRNA, LNP-S, PF, 100 mcg/0.5mL dose or 50 mcg/0.25mL dose 1 completed Not Available [facility] 05/22/2022 08:53:41 COVID-19, mRNA, LNP-S, PF, 100 mcg/0.5mL dose or 50 mcg/0.25mL dose 1 completed Not Available [facility] 05/22/2022 08:53:41 pneumococcal polysaccharide PPV23 0 completed Not Available [facility] 05/22/2022 08:53:42 Influenza, split virus, quadrivalent, preservative 0 completed Not Available [facility] 05/22/2022 08:53:42 Influenza, split virus, quadrivalent, preservative 9 completed Not Available [facility] 05/22/2022 08:53:42 Influenza, split virus, quadrivalent, preservative 9 completed Not Available [facility] 05/22/2022 08:53:42 influenza, unspecified formulation 6 completed Not Available [facility] 05/22/2022 08:53:42 Influenza, split virus, trivalent, preservative 5 completed Not Available [facility] 05/22/2022 08:53:42 Influenza, split virus, trivalent, preservative 4 completed Not Available [facility] 05/22/2022 08:53:42 Influenza, split virus, trivalent, preservative 3 completed Not Available [facility] 05/22/2022 08:53:42 Tdap 2 completed Not Available [facility] 05/22/2022 08:53:42 Past Encounters Encounter ID Performer Location Encounter Start Date Encounter Closed Date Diagnosis/Indication Diagnosis SNOMED-CT Code Diagnosis ICD10 Code Diagnosis Note [id number] S[facility] [facility] [address] , [place] [address] 09/21/2020 00:00:00 09/21/2020 11:01:26 [id number] S_G [facility] [facility] [address] [place] [address] [place] [address] 02/19/2021 00:00:00 02/19/2021 11:50:51 [id number] S[facility] [facility] [place] [address] 06/21/2021 00:00:00 06/21/2021 09:40:00 [id number] S_[facility] [address] [place] [address] 07/11/2021 00:00:00 07/11/2021 14:38:05 [id number] S[facility] [facility] [place] [address] 12/10/2021 00:00:00 12/10/2021 18:53:07 [id number] S_GMG [place] [address] [place] [address] 03/28/2022 00:00:00 03/28/2022 15:46:[id number] [address] 05/09/2022 00:00:00 05/09/2022 11:39:32 [id number] Jane Cast NP [address] [address] 04/01/2023 11:50:50 04/01/2023 13:41:45 Adult health examination 226344742 Z00.00 Encouraged well balanced meals, active lifestyle, and routine vision and dental appts. Hyperlipidemia 69254148 E78.5 Atorvastat in 80 mg po nightly. Zetia 10 mg po daily. Type 1 iman betes mellitus 57320450 E10.9 Seeing endo. Dexcom, semglee insulin pump Vitamin D deficiency 347 43358 E55.9 vit d 51,000-5,0 00 IU po daily. Osteopenia 595243413 M85 .80 dexa 06/2021 osteopenia . Repeat june 2023. Screening mammography 24 791314 Z12.31 07/01/2022 ok, order given 04/01/23 to schedule after 07/02/23. [id number] Nilson Green MD [address] [address] 04/15/2023 15:10:30 04/15/2023 15:58:49 Hyperlipidemia 67264335 E78.5 Type 1 iman betes mellitus 60092100 E10.9 Seasonal allergy 3653272 04 J30.2 Osteopenia 306136960 M85 .80 Vitamin D deficiency 347 56109 E55.9 [id number] Nilson Green MD [address] [address] 04/05/2024 14:07:24 04/05/2024 14:54:19 Hyperlipidemia 40950980 E78.5 Type 1 iman betes mellitus 67538456 E10.9 Seasonal allergy 7279454 04 J30.2 Osteopenia 061531727 M85 .80 Vitamin D deficiency 347 28513 E55.9 Adult heal th examination 970880282 Z00.00 Screening mammography 24 814345 Z12.31 Postmenopausal state 764 04500 Z78.0 Seasonal a llergic rhinitis 917195251 J30.2 Health Concerns Section Related Observation LastModified by Organization Detai ls LastModified Time None Recorded Concern Status LastModified by Organization Details LastModified Time None Recorded Advance Directives Directive Y: Payers Encounter Date Sequence Insurance Name Policy Number Policy Stokes Covered Member ID Stokes Member ID Guarantor Name 04/01/2023 1 [place] [id number] Jasmin K Krysten [id number] Jasmin K Krysten 04/15/2023 1 [place] [id number] Jasmin K Krysten [id number] Jasmin K Krysten 04/05/2024 1 [place] [id number] Jasmin K Krysten [id number] Jasmin K Krysten Notes Date Note Type Note Provider Name and Address Organization Details Recorded Time 04/01/2023 text/html Here for wellness adult visit Type I dm- Seeing endocrine. Red Luna. Dexcom. 01/31/23 7.6. endo did not make changes.Vit d def- vit d 5000 IU daily.Lipid- Labs done January 2023, no changes per endocrine. Colon screen- 04/08/22 negative.Mammogr am- 07/01/22 okWWE- 05/09/22 atrophy, getting every 3 years.DEXA 06/2021 osteopenia. Jane Cast NP [address], [place], [address], [place] [facility] 04/01/2023 13:19:09 04/15/2023 text/html Pt is here to establish her care with me. Doing overall well. Denies any new concern. Pt had DM-I and is f/u with Endo at [facility] for it. Pt is getting labs with them and so she doesn't want to do any labs here at all. Pt has chronic low back pain and has seen Pain clinic for it and got steroid injection with them. Nilson Green MD [address], [place], [address], [employer] 04/15/2023 15:53:17 04/05/2024 text/html Pt is here for her annual exam. Doing overall well. Denies any new concern. Pt had DM-I and is f/u with Endo at [facility] for it. Pt is getting labs with them and so she doesn't want to do any labs here at all. Pt has chronic low back pain and has seen Pain clinic for it and got steroid injection with them. Nilson Green MD [address], [place], [address], [employer] 04/05/2024 14:55:19 OBGyn Episode No OBEpisode recorded.
--- OUTSIDE RECORDS SUMMARY | 2024-04-30 12:57 | XMS_ITS | Data Portability ---
Author Organization [facility] [place] [facility] Address [address] [place] [address] Assessment No assessment recorded. Plan of Treatment Reminders Order Date Submit Date Provider Last Modified By Organization Details Last Modified Time Details Appointments ANY 15 2024 11:00A M Heriberto Degroot MD Not available Not available Not available Lab None recorded. Referral audiologi st referral [address], [address], 04/21/2024 11:01:53 Procedures None recorded. Surgeries None recorded. Imaging None recorded. Medication Orders None recorded. Patient TargetsNo targets recorded. Patient InstructionsNo instructions recorded. 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 Medications Name Sig Start Date Stop Date Status Note LastModified by Organization Details LastModified Time atorvastatin 80 mg tablet Take 1 tablet every day by oral route. active Not Available Not Available No t Available valacyclovir 1 gram tablet TAKE 1 TABLET BY MOUTH THREE TIMES DAILY FOR 7 DAYS active Not Available Not Available N ot Available prednisone 20 mg tablet TAKE 2 TABLETS BY MOUTH DAILY FOR 5 DAYS active Not Available Not Available N ot Available cephalexin 500 mg capsule TAKE 1 CAPSULE BY MOUTH THREE TIMES DAILY FOR 10 DAYS active Not Available Not Available Not Available fluticasone propionate 50 mcg/actuatio n nasal spray,suspen chantell SHAKE LIQUID AND USE 2 SPRAYS IN EACH NOSTRIL EVERY DAY IN THE EVENING active Not Available Not Available No t Available ezetimibe 10 mg tablet Take 1 tablet every day by oral route. active Not Available Not Available No t Available Lantus Solostar U-100 Insulin 100 unit/mL (3 mL) subcutaneous pen ADMINISTER 10 UNITS UNDER THE SKIN DAILY active Not Available Not Available N ot Available Vitals Date Recorded Body height Body mass index (BMI) Body weight Heart rate Respiratory rate Body temperature Systolic blood pressure Diastolic blood pressure Provider Name and Address Organization Details Last Updated DateTime 160.02 cm 22.3 kg/m2 08403.2 8 g 67 /min 16 /min 97.3 [degF] 118 mm[Hg] 76 mm[Hg] Teagan Benedict MA [facility] 16:13:22 Social History Question Answer Notes LastModified by Organizat ion Details LastModified Time Tobacco Smoking Status Never Smoker Teagan Benedict MA null, [facility] 04/20/2024 16:10:44 What Is Your Level Of Alcohol Consumption? None Information not available 04/20/2024 Are You Blind Or Do You Have Difficulty Seeing? Yes Contacts Information not available 04/20/2024 What Is Your Level Of Caffeine Consumption? Heavy Coffee Information not available 04/20/2024 In The 14 Days Before Symptom Onset, Have You Had Close Contact With A Laboratory-confi rmed COVID-19 While That Case Was Ill? No Information not available 04/20/2024 Have You Been To An Area Known To Be High Risk For COVID-19? No Information not available 04/20/2024 Are You Currently Employed? No Information not available 04/20/2024 Are You Deaf Or Do You Have Serious Difficulty Hearing? Yes Some Both Ears Information not available 04/20/2024 What Type Of Diet Are You Following? REGULAR Information not available 04/20/2024 What Was The Date Of Your Most Recent Tobacco Screening? 04/20/2024 Information not available 04/20/2024 What Is Your Relationship Status? Information not available 04/20/2024 Do You Feel Stressed (tense, Restless, Nervous, Or Anxious, Or Unable To Sleep At Night)? [id number] Information not available 04/20/2024 Do You Use Any Illicit Or Recreational Drugs? No Information not available 04/20/2024 Has Tobacco Cessation Counseling Been Provided? No Information not available 04/20/2024 Do You Or Have You Ever Used Any Other Forms Of Tobacco Or Nicotine? No Information not available 04/20/2024 Sex: Unknown Functional Status Question Answer Note LastModified by Organization D etails LastModified Time What is your exercise level? None Information not available 04/20/2024 Mental Status None recorded. Family History Nothing Reported. Medical History No medical history recorded. Gynecological HistoryNo gynecological history recorded. Obstetrics History GPAL:G 0 P 0 0 0 0 Past Encounters Encounter ID Performer Location Encounter Start Date Encounter Closed Date Diagnosis/Indication Diagnosis SNOMED-CT Code Diagnosis ICD10 Code Diagnosis [facility] [id number] [facility] [address] [place] [address] 04/20/2024 15:39:06 04/21/2024 11:10:25 Chronic rhinitis 59930948 J31.0 on flonase and Pilar Asymmetric al sensorineural hearing loss 613279270 H90.5 follow up after audio Health Concerns Section Related Observation LastModified by Organization Detai ls LastModified Time None Recorded Concern Status LastModified by Organization Details LastModified Time None Recorded Advance Directives Directive None Recorded Payers Encounter Date Sequence Insurance Name Policy Number Policy Stokes Covered Member ID Stokes Member ID Guarantor Name 04/20/2024 1 [place] [id number] Jasmin Asht [id number] Jasmin Bashir Notes Date Note Type Note Provider Name and Address Organization Details Recorded Time 04/20/2024 text/html Pt complaining o f hearing loss in her right ear. She had an episode of true whirling vertigo three months ago. She also complains of nasal congestion and drainage on flonase and antihistamines Heriberto Degroot MD Attn: Accounting[address] [facility], [place], [address], [facility] 04/20/2024 16:24:04 OBGyn Episode No OBEpisode recorded.
--- OUTSIDE RECORDS SUMMARY | 2024-04-30 12:57 | XMS_ITS | Clinical Summary ---
Author Organization [facility] Address [address] [place] [id number] Care Team Providers Care Steam Turbine Operator Name Role Phone Nilson Green MD Primary Care Provider [phone] Encounters Date Type Department Care Team Description 04/14/2024 10:25 AM TRANSPORTATION LEAD - 04/14/2024 11:59 PM TRANSPORTATION LEAD Hospital Encounter [facility] Mammography [place] [address] Nilson Green MD Discharge Disposition: Home or Self Care (Routine Discharge) 04/14/2024 Travel 04/09/2024 2:06 PM TRANSPORTATION LEAD - 04/09/2024 11:59 PM TRANSPORTATION LEAD Hospital Encounter [facility] Mammography [address] [place] [id number] Nilson Green MD Discharge Disposition: Home or Self Care (Routine Discharge) 04/09/2024 Travel from Last 3 Months Social History Tobacco Use Types Packs/Day Years Used Date Smoking Tobacco: Never Assessed Comments Unknown Sex and Gender Information Value Date Recorded Sex Assigned at Female 04/07/2024 10:42 AM TRANSPORTATION LEAD Legal Sex Female 3:01 PM TRANSPORTATION LEAD Gender Identity Not on file Sexual Orientation Not on file Plan of Treatment Health Maintenance Due Date Last Done Comments Cervical Cancer Screening Pap Smear (Age 30 to 64) Every 3 Years 1961 Colorectal Cancer Screening Colonoscopy (10 Years) 1961 Annual Physical 1964 Hepatitis C 1979 Cervical Cancer Screening Pap with HPV Testing (Age 30 to 64) Every 5 Years 1991 Cervical Cancer Screening with HPV 1991 COVID-19 Vaccine ( season) 2023 01/06/2023, 12/26/2021, 02/12/2021, Additional history exists Mammogram Screening 04/09/2026 04/09/2024 DTaP, Tdap and Td Vaccines (3 - Td or Tdap) 03/28/2032 03/28/2022, 01/22/2012 Pneumococcal Vaccine: Pediatrics (0 to 5 Years) and At-Risk Patients (6 to 64 Years) Aged Out 02/22/2020 No longer eligible based on patient's age to complete this topic Zoster Vaccines Completed 04/30/2021, 02/19/2021 RSV Immunization or 60+ Years Completed 01/09/2023 Influenza Adult Completed 12/22/2023, 07/2022, 12/20/2021, Additional history exists Meningococcal B Vaccine Aged Out No l onger eligible based on patient's age to complete this topic Meningococcal Vaccine Aged Out No jennifer johnnie eligible based on patient's age to complete this topic RSV Immunizations Under 20 Months Aged Out No longer eligible based on patient's age to complete this topic Procedures Procedure Name Priority Date/Time Associated Diagnosis Comments BONE DENSITY/DEXA Routine 04/14/2024 10: 51 AM TRANSPORTATION LEAD Asymptomatic menopausal state MG SCREENING W PEPPER JANE DIGI Routine 04/09/2024 2:28 PM TRANSPORTATION LEAD Screening mammogram for breast cancer from Last 3 Months Results * BONE DENSITY/DEXA (04/14/2024 10:51 AM TRANSPORTATION LEAD) Anatomical Region Laterality Modality Bone Mammography 04/14/2024 11:0 9 AM TRANSPORTATION LEAD Impressions 04/14/2024 11:10 AM TRANSPORTATION LEAD IMPRESSION: WHO Classification: osteopenia. FRAX 10-year fracture risk: Major Osteoporotic Fracture: 9.9% Hip Fracture: 1.4% Referred By: NILSON GREEN Interpreted By: Jonathan Diallo MD, 04/14/2024 11:09 AM Narrative 04/14/2024 11:[address] [facility] [address] [place] [address] Examination: Bone Density Axial Exam Date/Time: 04/14/2024 10:36 AM Reason For Exam: Post-menopausal screening. Comparison: None Findings: DEXA bone densitometry The bone mineral density (BMD) was determined by dual-energy x-ray absorptiometry, the results are as follows: AP Lumbar Spine L1 through L4 BMD Patient (GM/SQCM): 0.898 T-Score (Standard deviations from young adult peak bone density): -1.4 Left femoral neck: BMD Patient (GM/SQCM): 0.661 T-Score (Standard deviations from young adult peak bone density): -1.7 Total left femur: BMD Patient (GM/SQCM): 0.851 T-Score (Standard deviations from young adult peak bone density): -0.7 Right femoral neck: BMD Patient (GM/SQCM): 0.624 T-Score (Standard deviations from young adult peak bone density): -2.0 Total right femur: BMD Patient (GM/SQCM): 0.826 T-Score (Standard deviations from young adult peak bone density): -1.0 Recommendations: All patients should ensure an adequate intake of dietary calcium and vitamin D. The NOF recommend adults under the age of 50 need 1000 mg of calcium and 400-800 IU of vitamin D daily. Effective therapy for the prevention and treatment of osteoporosis include biphosphonates. Follow-up: People with diagnosed cases of osteoporosis or at high risk for fracture should have regular bone mineral density test. For patients eligible for Medicare, routine testing is allowed once every 2 years. Testing frequency can be increased to one year for patients who have rapidly progressing disease, those who are receiving or discontinuing medical therapy to restore bone mass, or have additional risk factors. Procedure Note Jonathan Diallo MD - 04/14/2024 [facility] [address] [place] [address] Examination: Bone Density Axial Exam Date/Time: 04/14/2024 10:36 AM Reason For Exam: Post-menopausal screening. Comparison: None Findings: DEXA bone densitometry The bone mineral density (BMD) was determined bydual-energy x-ray absorptiometry, the results are as follows: AP Lumbar Spine L1 through L4 BMD Patient (GM/SQCM): 0.898 T-Score (Standard deviations from young adult peak bonedensity): -1.4 Left femoral neck: BMD Patient (GM/SQCM): 0.661 T-Score (Standard deviations from young adult peak bonedensity): -1.7 Total left femur: BMD Patient (GM/SQCM): 0.851 T-Score (Standard deviations from young adult peak bonedensity): -0.7 Right femoral neck: BMD Patient (GM/SQCM): 0.624 T-Score (Standard deviations from young adult peak bonedensity): -2.0 Total right femur: BMD Patient (GM/SQCM): 0.826 T-Score (Standard deviations from young adult peak bonedensity): -1.0 Recommendations: All patients should ensure an adequate intake of dietary calcium andvitamin D. The NOF recommend adults under the age of 50 need 1000 mg ofcalcium and 400-800 IU of vitamin D daily. Effective therapy for theprevention and treatment of osteoporosis include biphosphonates. Follow-up: People with diagnosed cases of osteoporosis or at high risk for fractureshould have regular bone mineral density test. For patients eligible forMedicare, routine testing is allowed once every 2 years. Testing frequencycan be increased to one year for patients who have rapidly progressingdisease, those who are receiving or discontinuing medical therapy torestore bone mass, or have additional risk factors. IMPRESSION: WHO Classification: osteopenia. FRAX 10-year fracture risk: Major Osteoporotic Fracture: 9.9% Hip Fracture: 1.4% Referred By: NILSON GREEN Interpreted By: Jonathan Diallo MD, 04/14/2024 11:09 AM Nilson Green MD DEXA Final Result * MG SCREENING W PEPPER JANE DIGI (04/09/2024 2:28 PM TRANSPORTATION LEAD) Anatomical Region Laterality Modality Breast Bilateral Mammography 04/09/2024 5:38 PM TRANSPORTATION LEAD Impressions 04/09/2024 5:40 PM TRANSPORTATION LEAD IMPRESSION: No significant interval change. No mammographic evidence of malignancy. RECOMMENDATION: Routine ScreeningBilateral OVERALL IMAGING ASSESSMENT: ACR BI-RADS 2 - BENIGN FINDING(S). Ordered By: NILSON GREEN Interpreted By: Luisito Castro, 04/09/2024 5:38 PM Narrative 04/09/2024 5:40 PM TRANSPORTATION LEAD [facility] [place] [id number] EXAMINATION: MG SCREENING W PEPPER JANE DIGI INDICATIONS: Screening TECHNIQUE: Digital full field CC and MLO screening mammography bilaterally to include 3-D Tomosynthesis technique. This study was read with the assistance of a computer-aided detection system. HISTORY: No reported breast complaint. No documented personal or first degree family history of breast cancer. No documented prior breast procedure. COMPARISON: 07/01/2022, 2020, 03/10/2019, 12/09/2018, and 07/08/2016. TISSUE DENSITY: There are scattered areas of fibroglandular density. FINDINGS: Few typically benign round calcifications. No suspicious microcalcification or mass. Stable fibroglandular asymmetries. No developing asymmetry or architectural distortion. No axillary adenopathy. Nilson Green MD MAMMO Final Result from Last 3 Months Insurance [facility] Care Teams Steam Turbine Operator Relationship Specialty Start Date End Date Nilson Green MD [address] [place] [phone] PCP - General HOSPITALIST 04/14/24
--- OUTSIDE RECORDS SUMMARY | 2024-04-30 12:58 | XMS_ITS | Clinical Summary ---
Author Organization [facility] [address] [facility] Address [address] [place] [address] Care Team Providers Care Hydroelectric Mechanic Name Role Phone Red Luna MD Unavailable [phone] Nilson Green MD Primary Care Provider [phone] Allergies No known active allergies Medications cholecalciferol , vitamin D3, (VITAMIN D3 ORAL) Take 1 capsule by mouth every other day Active lancets misc Microlet Lancet USE TO TEST SIX TIMES D Active cetirizine (ZyrTEC) 10 mg tablet 02/20/20 20 Active blood glucose diagnostic (Contour Next Test Strips) strip Use to check blood sugar up to 3 times/day Use when Dexcom unavailable 300 strip 3 02/07/20 23 Active atorvastatin (LIPITOR) 80 mg tabletIndicatio ns: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) Take 1 tablet (80 mg total) by mouth daily 90 tablet 3 08/01/19 24 Active ezetimibe (ZETIA) 10 mg tabletIndicatio ns:Type 1 diabetes mellitus without complication (HCC) Take 1 tablet (10 mg total) by mouth daily 90 tablet 3 08/01/19 24 Active insulin glargine 100 unit/mL (3 mL) pen for injectionIndica tions:Type 1 diabetes mellitus without complication (HCC) Inject 10 Units under the skin daily 3 mL 1 08/01/19 24 Active NovoLOG 100 unit/mL vial for injection Active glucagon (Baqsimi) 3 mg/actuation spray,non-aeros olIndications:T ype 1 diabetes mellitus without complication (HCC) Administer 1 spray (3 mg total) into one nostril as needed (for use in case of emergency for hypoglycemia) 1 each 2 02/06/20 24 Active Dexcom G7 Sensor device CHANGE SENSOR EVERY 10 DAYS 9 each 3 04/22/19 25 Active Dexcom G7 Sensor device Change sensor every 10 days 9 each 01/29/20 24 025 Discontinued Active Problems Problem Noted Date Diagnosed Date 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 02/[address] 02/06/2022 Vitamin D deficiency 04/21/2019 Vaginal dryness 04/21/2019 Shoulder joint pain 04/21/2019 Seasonal allergies 04/21/2019 Positive antinuclear antibody 04/21/2019 Menopausal syndrome 04/21/2019 Hyperlipidemia 04/21/2019 Hemorrhoids 04/21/2019 Elevation of level of transa minase and lactic acid dehydrogenase (LDH) 04/21/2019 Osteopenia 03/30/2019 Age-related nuclear cataract of both eyes 2018 Assessment & Plan (03/14/2020 9:56 AM FISH CLEANER MACHINE TENDER): Very mild, not VS Observe for now Assessment & Plan (02/02/2019 9:38 AM FISH CLEANER MACHINE TENDER): Very mild, not visually significant Observe Vitreous syneresis of both eyes 02/02/2019 Assessment & Plan (03/14/2020 9:56 AM FISH CLEANER MACHINE TENDER): No RT/RD on exam Observe Assessment & Plan (02/02/2019 9:38 AM FISH CLEANER MACHINE TENDER): No RT/RD on exam Observe Diabetic nephropathy associa sarahy with type 1 diabetes mellitus (CMS/HCC) 01/26/2019 Unintentional weight loss 12/14/2018 Abnormal blood creatinine level 12/14/2018 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 Follows with endocrinology, Dr. Alas. Assessment & Plan (02/02/2019 9:57 AM FISH CLEANER MACHINE TENDER): Type 1 DM x 5 years No BIN FILLER on exam today Annual DFE Continue BS/BP management, follows with endocrinology and Dr alas Retinopathy 12/11/2018 Trigger finger, right little finger 06/04/2018 Overview (06/04/2018): Added automatically from request for surgery [id number] Encounters Date Type Department Care Team Description 03/08/2024 1:00 PM FISH CLEANER MACHINE TENDER Clinical Support [facility] Endocrinology Metabolism and Lipid [address] [facility] [address] [place] [address] [place] [address] Type 1 diabetes mellitus without complication (HCC) 02/06/2024 1:30 PM FISH CLEANER MACHINE TENDER Office Visit [facility] Endocrinology Metabolism and Lipid [address] [facility] [address] [place] [address] [place] [address] Saida Arnold MD Type 1 diabetes mellitus without complication (HCC) (Primary Dx) from Last 3 Months Surgical History Surgery Date Site/Laterality Comments TONSILLECTOMY 03/24/1965 - 03/23/1966 Medical History Medical History Date Comments Arthritis Diabetes mellitus (HCC) Family History Medical History Relation Name Comments Cancer Father Heart disease Father Hypertension Father Heart disease Mother Hypertension Mother Stroke Mother Blindness Neg Hx Macular degeneration Neg Hx Retinal detachment Neg Hx Relation Name Status Comments Father Mother Social History Tobacco Use Types Packs/Day Years Used Date Smoking Tobacco: Never Smokeless Tobacco: Never Tobacco Cessation:Counseling Given: Not Answered Alcohol Use Standard Drinks/Week Comments Yes 0 (1 standard drink = 0.6 oz pur e alcohol) rare Comments No Sex and Gender Information Value Date Recorded Sex Assigned at Not on file Legal Sex Female 3:45 AM FISH CLEANER MACHINE TENDER Gender Identity Female 02/20/2020 10:49 AM FISH CLEANER MACHINE TENDER Sexual Orientation Straight 02/20/2020 10 :48 AM FISH CLEANER MACHINE TENDER Obstetrics History Last Filed Vital Signs Vital Sign Reading Time Taken Comments Blood Pressure 126/80 02/06/2024 1:23 PM FISH CLEANER MACHINE TENDER Pulse 71 02/06/2024 1:23 PM FISH CLEANER MACHINE TENDER Temperature 36.9 C (98.4 F) 02/06/2024 1:23 PM FISH CLEANER MACHINE TENDER Respiratory Rate 16 06/17/2018 9:50 AM CDT Oxygen Saturation 100% 06/17/2018 9:50 AM CDT Inhaled Oxygen Concentration - - Weight 56.9 kg (125 lb 6.4 oz) 02/06/2024 1:23 P M FISH CLEANER MACHINE TENDER Height 160 cm (5' 3 ) 02/06/2024 1:23 PM FISH CLEANER MACHINE TENDER Body Mass Index 22.21 02/06/2024 1:23 PM FISH CLEANER MACHINE TENDER Plan of Treatment Health Maintenance Due Date Last Done Comments Cervical Cancer Screening 1961 Colon Cancer Screening-Colonoscopy 1961 Depression Screening 1961 Foot Exam 1961 Hepatitis C Screening 1961 Hepatitis B Screening 1979 Regular Well Visit/Exam 18-64 1979 Zoster Vaccine (1 of 2) 2011 Pneumococcal vaccine <65 (2 of 2 - PCV) 02/21/2021 02/22/2020 DTaP/Tdap/Td Vaccine (2 - Td or Tdap) 01/21/2022 01/22/2012 Breast Cancer Screening-Mammogram 07/02/2023 023 Dilated Eye Exam 11/13/2023 11/12/2022, , 02/02/2019 Influenza Vaccine (#1) 2023 , 12/25/2020, 02/15/2020, Additional history exists TSH Level 07/31/2024 08/01/2023, 07/22, 12/14/2018 eGFR 07/31/2024 08/01/2023, 07/22, 02/07/2022, Additional history exists Hemoglobin A1C 08/05/2024 02/06/2024, 07/22, 01/31/2023, Additional history exists Albumin Creatinine Ratio, Urine 02/08/2025 02/09/2024, 01/31/2023, 02/07/2022, Additional history exists Lipid Panel 02/08/2025 02/09/2024, 01/22, 06/09/2021, Additional history exists Procedures Procedure Name Priority Date/Time Associated Diagnosis Comments LIPID PANEL Routine 02/09/2024 9:07 AM FISH CLEANER MACHINE TENDER Type 1 diabetes mellitus without complication (HCC) ALBUMIN CREATININE RATIO, URINE Routine 02/09/2024 9:07 AM FISH CLEANER MACHINE TENDER Type 1 diabetes mellitus without complication (HCC) POCT HEMOGLOBIN A1C Routine 02/06/2024 1 :32 PM FISH CLEANER MACHINE TENDER Type 1 diabetes mellitus without complication (HCC) POCT GLUCOSE [id number] Routine 02/06/2024 1: 32 PM FISH CLEANER MACHINE TENDER Type 1 diabetes mellitus without complication (HCC) RENAL FUNCTION PANEL Routine 08/01/2023 1:57 PM CDT Type 1 diabetes mellitus without complication (CMS/HCC) (HCC) THYROID FUNCTION CASCADE Routine 08/01/2023 1:57 PM CDT Type 1 diabetes mellitus without complication (CMS/HCC) (HCC) DIABETIC EYE EXAM Routine 11/12/2022 9:5 4 PM CDT from Last 3 Months or Most Recently Relevant to Health Maintenance Results * (ABNORMAL) Albumin Creatinine Ratio, Urine (02/09/2024 9:07 AM FISH CLEANER MACHINE TENDER) Creatinine, ur 17(L) 20 - 275 mg/dL [facility] Microalbumin, ur <0.2 See Note: mg/dL [facility] Comment: Reference Range: Reference Range Not established Microalbumin/creat ratio NOTE <30 mg/g creat [facility] Comment: NOTE: The urine albumin value is less than 0.2 mg/dL therefore we are unable to calculate excretion and/or creatinine ratio. The ADA defines abnormalities in albumin excretion as follows: Albuminuria Category Result (mg/g creatinine) Normal to Mildly increased <30 Moderately increased 30-299 Severely increased > OR = 300 The ADA recommends that at least two of three specimens collected within a 3-6 month period be abnormal before considering a patient to be within a diagnostic category. Urine 02/09/2024 9:07 AM FISH CLEANER MACHINE TENDER 02/09/2024 9:08 AM FISH CLEANER MACHINE TENDER Narrative [facility] - 02/10/2024 5:58 AM FISH CLEANER MACHINE TENDER FASTING:YES FASTING: YES Saida Arnold MD LAB URINE ORDERABLES Final Resu lt Performing Organization Address [facility]/ZIP Co de Phone Number LUCIUS [facility] [address] [phone] * Lipid panel (02/09/2024 9:07 AM FISH CLEANER MACHINE TENDER) Pathologist [facility] Cholesterol 122 <200 mg/dL [facility] HDL 60 > OR = 50 mg/dL [facility] Triglycerides 58 <150 mg/dL [facility] LDL 49 mg/dL (calc) [facility] Comment: Reference range: <100 Desirable range <100 mg/dL for primary prevention; <70 mg/dL for patients with CHD or diabetic patients with > or = 2 CHD risk factors. LDL-C is now calculated using the Daniel-Ezra calculation, which is a validated novel method providing better accuracy than the Friedewald equation in the estimation of LDL-C. Daniel COREAS et al. DONALD. 2013;310(19): 8239-5309 (http://education.[employer].BrandCont/faq/NSM230) Chol/HDL ratio 2.0 <5.0 (calc) [facility] Non-HDL, (LDL+VLDL) 62 <130 mg/dL (calc) [facility] Comment: For patients with diabetes plus 1 major ASCVD risk factor, treating to a non-HDL-C goal of <100 mg/dL (LDL-C of <70 mg/dL) is considered a therapeutic option. Blood 02/09/2024 9:07 AM FISH CLEANER MACHINE TENDER 02/09/2024 9:08 AM FISH CLEANER MACHINE TENDER Narrative [facility] - 02/10/2024 5:58 AM FISH CLEANER MACHINE TENDER FASTING:YES FASTING: YES Saida Arnold MD LAB BLOOD ORDERABLES Final Resu lt Performing Organization Address [facility]/ZIP Co de Phone Number LUCIUS [facility] [address] [phone] * POCT glucose (02/06/2024 1:32 PM FISH CLEANER MACHINE TENDER) Pathologist [facility] Glucose Blood, POC 172 mg/dL Blood 02/06/2024 1:32 PM FISH CLEANER MACHINE TENDER Saida Arnold MD POINT OF CARE TEST ORDERABLES F inal Result * POCT hemoglobin A1c (02/06/2024 1:32 PM FISH CLEANER MACHINE TENDER) Pathologist [facility] Hemoglobin A1C, POC 7.4 4.0 - 5.6 % Blood 02/06/2024 1:32 PM FISH CLEANER MACHINE TENDER Saida Arnold MD POINT OF CARE TEST ORDERABLES F inal Result * Thyroid Function [place] (08/01/2023 1:57 PM CDT) [facility] TSH 2.79 0.40 - 4.50 mIU/L [facility] Blood 08/01/2023 1:57 PM CDT 08/01/2023 1:58 PM CDT Yamilka Jacinto MD LAB BLOOD ORDERABLES Final Result Performing Organization Address City/State/[facility] Co de Phone Number [facility] [employer] [address] [place] [address] * (ABNORMAL) Renal function panel (08/01/2023 1:57 PM CDT) Pathologist [facility] Glucose 121(H) 65 - 99 mg/dL [facility] Comment: Fasting reference interval For someone without known diabetes, a glucose value between 100 and 125 mg/dL is consistent with prediabetes and should be confirmed with a follow-up test. BUN 14 7 - 25 mg/dL [facility] Creatinine 0.82 0.50 - 1.05 mg/dL [facility] eGFR 81 > OR = 60 mL/min/1.7 3m2 [facility] BUN/creat ratio SEE NOTE: (calc) [facility] Comment: Not Reported: BUN and Creatinine are within reference range. Sodium 137 135 - 146 mmol/L [facility] Potassium, pl 4.2 3.5 - 5.3 mmol/L [facility] Chloride 102 98 - 110 mmol/L [facility] CO2 26 20 - 32 mmol/L [facility] Calcium 9.5 8.6 - 10.4 mg/dL [facility] Phosphorus, sr 4.1 2.5 - 4.5 mg/dL [facility] Albumin 4.4 3.6 - 5.1 g/dL [facility] Blood 08/01/2023 1:57 PM CDT 08/01/2023 1:58 PM CDT Yamilka Jacinto MD LAB BLOOD ORDERABLES Final Result [facility] [address] [place] [address] * Diabetic Eye Exam (11/12/2022 9:54 PM CDT) Historical Provider HEALTH MAINTENANCE Final Result from Last 3 Months or Most Recently Relevant to Health Maintenance [facility] [place] Care Teams Hydroelectric Mechanic Relationship Specialty Start Date End Date Nilson Green MD [address] [place] [address] [place] [address] PCP - General Family Medicine 08/01/23 Red Luna MD Endocrinology Diabetes & Metabolism 03/14/20
--- OUTSIDE RECORDS SUMMARY | 2024-04-30 12:58 | XMS_ITS | Referral Summary ---
Author Organization [facility] [address] [facility] Address [address] [place] [address] Care Team Providers Care Director Index Name Role Phone Red Luna MD Unavailable [phone] Nilson Green MD Primary Care Provider Encounters Date Type Department Care Team Description 03/08/2024 1:00 PM COSMETIC SALES ASSISTANT Clinical Support [facility] Endocrinology Metabolism and Lipid [address] [facility] [address] [place] [address] [place] [address] Type 1 diabetes mellitus without complication (HCC) 02/06/2024 1:30 PM COSMETIC SALES ASSISTANT Office Visit [facility] Endocrinology Metabolism and Lipid [address] [facility] [address] [place] [address] [place] [address] Saida Arnold MD Type 1 diabetes mellitus without complication (HCC) (Primary Dx) from Last 3 Months Allergies No known active allergies Medications cholecalciferol [...] 2018 Assessment & Plan (03/14/2020 9:56 AM COSMETIC SALES ASSISTANT): Very mild, not VS Observe for now Assessment & Plan (02/02/2019 9:38 AM COSMETIC SALES ASSISTANT): Very mild, not visually significant Observe Vitreous syneresis of both eyes 02/02/2019 Assessment & Plan (03/14/2020 9:56 AM COSMETIC SALES ASSISTANT): No RT/RD on exam Observe Assessment & Plan (02/02/2019 9:38 AM COSMETIC SALES ASSISTANT): No RT/RD on exam Observe Diabetic nephropathy associa sarahy with type 1 diabetes mellitus (CMS/HCC) 01/26/2019 Unintentional weight loss 12/14/2018 Abnormal blood creatinine level 12/14/2018 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 Follows with endocrinology, Dr. Alas. 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 Annual DFE Continue BS/BP management, follows with endocrinology and Dr alas Retinopathy 12/11/2018 Trigger finger, right little finger 06/04/2018 Overview (06/04/2018): Added automatically from request for surgery [id number] Social History Tobacco Use Types Packs/Day Years Used Date Smoking Tobacco: Never Smokeless Tobacco: Never Tobacco Cessation:Counseling Given: Not Answered Alcohol Use Standard Drinks/Week Comments Yes 0 (1 standard drink = 0.6 oz pur e alcohol) rare Comments No Sex and Gender Information Value Date Recorded Sex Assigned at Not on file Legal Sex Female 3:45 AM COSMETIC SALES ASSISTANT Gender Identity Female 02/20/2020 10:49 AM COSMETIC SALES ASSISTANT Sexual Orientation Straight 02/20/2020 10 :48 AM COSMETIC SALES ASSISTANT Last Filed Vital Signs Vital Sign Reading Time Taken Comments Blood Pressure 126/80 02/06/2024 1:23 PM COSMETIC SALES ASSISTANT Pulse 71 02/06/2024 1:23 PM COSMETIC SALES ASSISTANT Temperature 36.9 C (98.4 F) 02/06/2024 1:23 PM COSMETIC SALES ASSISTANT Respiratory Rate 16 06/17/2018 9:50 AM CDT Oxygen Saturation 100% 06/17/2018 9:50 AM CDT Inhaled Oxygen Concentration - - Weight 56.9 kg (125 lb 6.4 oz) 02/06/2024 1:23 P M COSMETIC SALES ASSISTANT Height 160 cm (5' 3 ) 02/06/2024 1:23 PM COSMETIC SALES ASSISTANT Body Mass Index 22.21 02/06/2024 1:23 PM COSMETIC SALES ASSISTANT Plan of Treatment Not on file Procedures Procedure Name Priority Date/Time Associated Diagnosis Comments LIPID PANEL Routine 02/09/2024 9:07 AM COSMETIC SALES ASSISTANT Type 1 diabetes mellitus without complication (HCC) ALBUMIN CREATININE RATIO, URINE Routine 02/09/2024 9:07 AM COSMETIC SALES ASSISTANT Type 1 diabetes mellitus without complication (HCC) POCT HEMOGLOBIN A1C Routine 02/06/2024 1 :32 PM COSMETIC SALES ASSISTANT Type 1 diabetes mellitus without complication (HCC) POCT GLUCOSE [id number] Routine 02/06/2024 1: 32 PM COSMETIC SALES ASSISTANT Type 1 diabetes mellitus without complication (HCC) [...] Albumin Creatinine Ratio, Urine (02/09/2024 9:07 AM COSMETIC SALES ASSISTANT) Creatinine, ur 17(L) 20 - 275 mg/dL [...] a diagnostic category. Urine 02/09/2024 9:07 AM COSMETIC SALES ASSISTANT 02/09/2024 9:08 AM COSMETIC SALES ASSISTANT Narrative [facility] - 02/10/2024 5:58 AM COSMETIC SALES ASSISTANT FASTING:YES FASTING: YES us Saida Arnold MD LAB URINE ORDERABLES Final Resu lt [facility] [address] [address] * Lipid panel (02/09/2024 9:07 AM COSMETIC SALES ASSISTANT) Cholesterol 122 <200 mg/dL [facility] [...] factors. LDL-C is now calculated using the Daniel-Munguia calculation, which is a validated novel method providing better accuracy than the Friedewald equation in the estimation of LDL-C. Daniel SS et al. DONALD. 2013;310(19): 1497-6310 (http://education.[employer].Optrace/faq/UAR203) Chol/HDL ratio 2.0 <5.0 (calc) [facility] Non-HDL, (LDL+VLDL) 62 <130 mg/dL (calc) [facility] Comment: For patients with diabetes plus 1 major ASCVD risk factor, treating to a non-HDL-C goal of <100 mg/dL (LDL-C of <70 mg/dL) is considered a therapeutic option. Blood 02/09/2024 9:07 AM COSMETIC SALES ASSISTANT 02/09/2024 9:08 AM COSMETIC SALES ASSISTANT Narrative [facility] - 02/10/2024 5:58 AM COSMETIC SALES ASSISTANT FASTING:YES FASTING: YES us Saida Arnold MD LAB BLOOD ORDERABLES Final Resu lt [facility] [address] [place] [address] * POCT glucose (02/06/2024 1:32 PM COSMETIC SALES ASSISTANT) Glucose Blood, POC 172 mg/dL Blood 02/06/2024 1:32 PM COSMETIC SALES ASSISTANT Saida Arnold MD POINT OF CARE TEST ORDERABLES F inal Result * POCT hemoglobin A1c (02/06/2024 1:32 PM COSMETIC SALES ASSISTANT) Pathologist [facility] Hemoglobin A1C, POC 7.4 4.0 - 5.6 % Blood 02/06/2024 1:32 PM COSMETIC SALES ASSISTANT Saida Arnold MD POINT OF CARE TEST ORDERABLES F inal Result * Thyroid Function [place] (08/01/2023 1:57 PM CDT) [facility] TSH 2.79 0.40 - 4.50 mIU/L [facility] Blood 08/01/2023 1:57 PM CDT 08/01/2023 1:58 PM CDT Yamilka Jacinto MD LAB BLOOD ORDERABLES Final Result Performing Organization Address [facility]/ZIP Co de Phone Number [facility] [address] [place] [address] * (ABNORMAL) Renal function panel (08/01/2023 1:57 PM CDT) Pathologist [facility] Glucose 121(H) 65 - 99 mg/dL [facility] [...] [facility] BUN/creat ratio SEE NOTE: 6 (calc) [facility] Comment: Not Reported: [...] LAB BLOOD ORDERABLES Final Result [facility] [address] [place] [address] * Diabetic Eye Exam (11/12/2022 9:54 PM CDT) Historical Provider HEALTH MAINTENANCE Final Result from Last 3 Months or Most Recently Relevant to Health Maintenance Insurance [address] [place] [id number] BL [place] Care Teams Director Index Relationship Specialty Start Date End Date Nilson Green MD [address] [place] [address] [place] [address] PCP - General Family Medicine 08/01/23 Red Luna MD Endocrinology Diabetes & Metabolism 03/14/20
== END 2024-04-30 12:52 | disposition home or self-care (01) ==
LOC: ANHAUDIO 12:52
PROVIDERS: PCP Family Medicine; Visit Provider Otolaryngology
DX: R42 Dizziness and giddiness (principal); H90.5 Unspecified sensorineural hearing loss
CPT/HCPCS: 92557; 92567